=== PATIENT | male | born 1960 | race Caucasian/White ===

== ENCOUNTER 2025-09-29 09:18 | Emergency (ER) | payer MEDICARE ==
[2025-09-29 10:00] LABS: BASOPHILS ABSOLUTE AUTO 0.03 K/uL (0.00-0.10); BASOPHILS PERCENT AUTO 0.3 % (0.1-1.3); EOSINOPHILS PERCENT AUTO 0.0 % (0.0-5.4); IMMATURE GRAN ABSOLUTE AUTO 0.07 K/uL (0.00-0.23); IMMATURE GRAN PERCENT AUTO 0.8 % (0.0-0.7); LYMPHOCYTES ABSOLUTE AUTO 0.95 K/uL (0.8-3.3); LYMPHOCYTES PERCENT AUTO 11.1 % (11.4-47.7); MONOCYTES ABSOLUTE AUTO 0.83 K/uL (0.20-0.90); MONOCYTES PERCENT AUTO 9.7 % (3.3-12.6); NEUTROPHILS ABSOLUTE AUTO 6.70 K/uL (1.0-7.6); NEUTROPHILS PERCENT AUTO 78.1 % (40.0-78.1); PLATELET COUNT,PLT 88 K/uL (130-375); RED BLOOD CELL COUNT 4.79 M/uL (4.14-5.76); WHITE BLOOD CELL COUNT,WBC 8.6 K/uL (3.2-11.0)
[2025-09-29 10:08] LABS: EOSINOPHILS ABSOLUTE AUTO 0.00 K/uL (0.00-0.40)
[2025-09-29 10:32] LABS: APPEARANCE,URINE CLEAR (CLEAR); GLUCOSE,URINE NEGATIVE (NEGATIVE); OCCULT BLOOD,URINE MODERATE (NEGATIVE)
[2025-09-29 10:42] LABS: A/G RATIO 0.6 (1.2-2.2); ALANINE AMINOTRANSFERASE,ALT 100 U/L (12-78); ASPARTATE AMNIOTRANSFERASE,AST 637 U/L (15-37); BILIRUBIN TOTAL 1.9 mg/dL (0.2-1.0); BLOOD UREA NITROGEN,BUN 9 mg/dL (7-18); CARBON DIOXIDE,CO2 28 mmol/L (21-32); CHLORIDE,CL 93 mmol/L (100-108); CREATININE 0.9 mg/dL (0.8-1.3); EST CRCL DRUG DOSING (CG) 78.75 mL/min; ESTIMATED GFR 95 mL/min (>60); GLUCOSE RANDOM 91 mg/dL (74-106); PROTEIN TOTAL,TP 7.7 g/dL (6.4-8.2); SODIUM,NA 137 mmol/L (140-148)
[2025-09-29 10:43] LABS: SQUAMOUS EPITHELIAL CELLS,UR RARE /HPF; UROTHELIAL CELLS,URINE NOT SEEN /HPF
[2025-09-29 10:56] LABS: POTASSIUM,K 2.2 mmol/L (3.6-5.2)
[2025-09-29] MEDS ORDERED: Iopamidol 612 MG/ML 100 ML Bottle IV SCH (11:30)
[2025-09-29] MEDS: Potassium Chloride 20 MEQ in Premix Bag 1 BAG IV ONE (11:52)
[2025-09-29] MEDS: Sodium Chloride 0.9% 10 ML Syringe FLUSH ONE (11:56)
== END 2025-09-29 14:11 | disposition other institution (70) ==
LOC: JP.ED 09:18
DX: T79.6XXA Traumatic ischemia of muscle, initial encounter (principal); E87.6 Hypokalemia; W06.XXXA Fall from bed, initial encounter; Y93.89 Activity, other specified
CPT/HCPCS: 36415; 51702; 70450; 71260; 72125; 72131; 72192; 74177; 76377; 80053; 80307; 81001; 82550; 83605; 85025; 96361; 96365; 96366; 99285; J3480; J7030